=== PATIENT | female | born 1985 | race Two or more races ===

== ENCOUNTER 2020-02-19 09:07 | Emergency (ER) | payer OTHER ==
[~2020-02-19] VITALS: Ht 149.9 cm; Wt 56.8 kg
--- NOTE | 2020-02-19 09:20 | PHYS DOC ---
Past History Past Medical History: No Pertinent History Adult General HPI HPI Patient is a 34-year-old female presenting for vaginal spotting. Onset was yesterday. Patient reports having sexual intercourse night prior to onset but otherwise denies any other known provoking factors or trauma. Nothing known makes better or worse. Patient denies any pain, specifically any fevers, abdominal pain, vaginal pain, vaginal discharge or overt vaginal bleeding. Reports spotting of thin clear/pink-tinged discharge when wiping after urination, no blood observed in the toilet. Patient presenting for evaluation as she read potential complications of vaginal bleeding online. Of note, she reports being roughly 11 weeks , she is established at [facility] for which she is undergoing IUI. Patient has history of x1 miscarriage approximately 1 year ago Review of Systems Review of Systems Fourteen body systems of review of systems have been reviewed. See HPI for pertinent positives and negative responses, other zimmer all other systems are negative, non-pertinent or non-contributory Physical Exam Physical Exam Constitutional: Well developed, well nourished, no acute distress, non-toxic appearance. HENT: Normocephalic, atraumatic, bilateral external ears normal, oropharynx moist, no oral exudates, nose normal. Eyes: PERRLA, EOMI, conjunctiva normal, no discharge. Neck: Normal range of motion, no tenderness, supple, no stridor. Cardiovascular: Heart rate regular, sinus rhythm, no murmurs rubs or gallops Lungs & Thorax: Bilateral breath sounds clear to auscultation Abdomen: Bowel sounds normal, gravid abdomen, soft, no tenderness, no masses, no pulsatile masses. Nonsurgical abdomen, no peritoneal signs Skin: Warm, dry, no erythema, no rash. Back: No tenderness, no CVA tenderness. Extremities: No tenderness, no cyanosis, no clubbing, ROM intact, no edema. Neurologic: Alert and oriented X 3, grossly normal motor & sensory function, no focal deficits noted. Psychologic: Affect normal, judgement normal, mood normal. Current Patient Data Vital Signs Vital Signs Date Time Temp Pulse Resp B/P (MAP) Pulse Ox O2 Delivery O2 Flow Rate FiO2 02/19/20 09:12 98.0 79 16 124/88 (100) Room Air Lab Results Laboratory Tests Test 02/19/20 09:30 Urine Collection Type Unknown Urine Color Yellow Urine Clarity Hazy Urine pH 7.0 Urine Specific [place] 1.020 Urine Protein Neg (NEG-TRACE) Urine Glucose (UA) Neg mg/dL (NEG) Urine Ketones (Stick) Neg mg/dL (NEG) Urine Blood Mod (NEG) Urine Nitrite Neg (NEG) Urine Bilirubin Neg (NEG) Urine Urobilinogen Dipstick 0.2 mg/dL (0.2 mg/dL) Urine Leukocyte Esterase Trace (NEG) Urine RBC 1-2 /HPF (0-2) Urine WBC 1-4 /HPF (0-4) Urine Squamous Epithelial Cells Few /LPF Urine Bacteria 0 /HPF (0-FEW) Urine Mucus Slight /LPF EKG EKG [] Radiology/Procedures Radiology/Procedures PROCEDURE: PREG 1ST TRIMESTER PREG 1ST TRIMESTER History: Reason: vaginal spotting / Spl. Instructions: PT DID IUI PROCEDURE, STOPPED PROGESTERONE LAST WEEK / History: Comparison: None. Technique: Grayscale and color Doppler imaging of the pelvis was performed using transabdominal technique. Findings: The uterus measures 9.4 x 6.6 x 5.6 cm. Cervical length 2.3 cm. Irregular intrauterine gestational sac measures 2.4 cm. No yolk sac is identified. No pole is identified. Estimated gestational age by ultrasound according to the gestational sac 7 weeks 3 days. Right ovary measures 2.8 x 2.5 x 2.3 cm. Left ovary measures 3.2 x 2.6 x 1.6 cm. Normal Doppler flow to the ovaries bilaterally. No adnexal masses are seen. IMPRESSION: 1. Irregular intrauterine gestational sac without embryo, suspicious for failed early . Recommend comparison with prior imaging studies. Recommend short-term ultrasound follow-up and serial beta-hCG testing. Electronically signed by: Delon Markham DO (02/19/2020 10:20 AM) [id number] Course & Med Decision Making Course & Med Decision Making Patient seen and evaluated on immediate ER arrival ABCs non-concerning Comprehensive history and physical exam obtained, subsequent diagnostic studies ordered UA showed no infection, reviewed findings of ultrasound study extensively with patient and discussed findings concerning for failed early I discussed need to draw quantitative hCG today and need for short [facility] follow-up to repeat this lab in addition to repeat ultrasound, patient understood I discussed at this point of ER care, no further intervention or diagnostic work-up is indicated. My risk for ectopic is low given clinical presentation in asymptomatic patient Strict return precautions discussed with good understanding by patient, all questions and concerns addressed prior to ER departure in stable condition Maxime Disclaimer Maxime Disclaimer This electronic medical record was generated, in whole or in part, using a voice recognition dictation system. Departure Departure: Impression: Primary Impression: Vaginal bleeding in patient at less than 20 weeks gestation Disposition: HOME/RESIDENCE PRIOR TO ADM Condition: STABLE Referrals: JOCELYN GONZALEZ DO (PCP) Patient Instructions: Vaginal Bleeding During , First Trimester Additional Instructions: As discussed prior to ER departure, please follow-up with your [facility] in upcoming 1 to 5 days for outpatient follow-up. You will need repeat blood work and repeat ultrasound performed Justification of Admission: Justification of Admission: Justification of Admission Dx: N/A JOSE DE JESUS COSTELLO DO Feb 19, 2020 09:20
[2020-02-19] MEDS ORDERED: PREN-2 PO (09:42)
[2020-02-19] MEDS ORDERED: SERT25TA PO (09:42)
[2020-02-19 10:21] LABS: BACTERIA,URINE 0 /HPF (0-FEW); BILIRUBIN,URINE NEG (NEG); CLARITY,URINE HAZY; COLOR,URINE YELLOW; GLUCOSE,URINE NEG (NEG); NITRITE,URINE NEG (NEG); SQUAMOUS EPITHELIAL CELL,UR FEW /LPF; UROBILINOGEN,URINE 0.2 mg/dL (0.2 mg/dL)
--- NOTE | 2020-02-19 10:24 | RAD ---
PREG 1ST TRIMESTER History: Reason: vaginal spotting / Spl. Instructions: PT DID IUI PROCEDURE, STOPPED PROGESTERONE LAST WEEK / History: Comparison: None. Technique: Grayscale and color Doppler imaging of the pelvis was performed using transabdominal technique. Findings: The uterus measures 9.4 x 6.6 x 5.6 cm. Cervical length 2.3 cm. Irregular intrauterine gestational sac measures 2.4 cm. No yolk sac is identified. No pole is identified. Estimated gestational age by ultrasound according to the gestational sac 7 weeks 3 days. Right ovary measures 2.8 x 2.5 x 2.3 cm. Left ovary measures 3.2 x 2.6 x 1.6 cm. Normal Doppler flow to the ovaries bilaterally. No adnexal masses are seen. IMPRESSION: 1. Irregular intrauterine gestational sac without embryo, suspicious for failed early . Recommend comparison with prior imaging studies. Recommend short-term ultrasound follow-up and serial beta-hCG testing. Electronically signed by: Delon Markham DO (02/19/2020 10:20 AM) [id number]
[2020-02-19 10:43] VITALS: BP 120/74
== END 2020-02-19 10:48 | disposition home or self-care (01) ==
LOC: ER 09:07
DX: O20.9 Hemorrhage in early pregnancy, unspecified (principal); Z3A.11 11 weeks gestation of pregnancy
CPT/HCPCS: 36415; 76801; 81001; 84702; 87086; 99284